=== PATIENT | female | born 1960 | race Caucasian/White ===

== ENCOUNTER 2024-02-20 07:24 | Day surgery (SDC) | payer BC ==
[~2024-02-20] VITALS: Ht 165.1 cm; Wt 65.8 kg
[2024-02-20] MEDS: CEFAZOLIN SOD 2 GM in D5W 50 ML IV ONE (08:00)
[2024-02-20] MEDS ORDERED: MIDAZOLAM HCL 2 MG/2 ML VIAL (VERSED) ONE (08:58)
[2024-02-20] MEDS ORDERED: ePHEDrine sulfate 50 MG/ML VIAL ONE (08:58)
[2024-02-20] MEDS ORDERED: LIDOCAINE HCL/PF 1% 10 ML AMPUL INJ ONE (08:58)
[2024-02-20] MEDS ORDERED: fentaNYL CITRATE/PF 100 MCG/2 ML AMP ONE (08:58)
[2024-02-20] MEDS ORDERED: PROPOFOL 200MG/ 20ML VIAL (DIPRIVAN) IV ONE (08:58)
[2024-02-20] MEDS ORDERED: LR 1,000 ML IV.SOLN IV ONE (08:58)
[2024-02-20] MEDS ORDERED: SEVOFLURANE 15 MIN GAS INH ONE (08:58)
[2024-02-20] MEDS ORDERED: NS IRRIG SOLN 1000 ML IR ONE (08:58)
[2024-02-20] MEDS ORDERED: SUCCINYLCHOLINE CHLORIDE 20 MG/ML(QUELICIN) ONE (08:58)
[2024-02-20] MEDS: LR 1,000 ML IV SCH (10:15)
[2024-02-20] MEDS ORDERED: NALOXONE HCL 0.4 MG/ML AMP (NARCAN) IVP PRN (10:15)
[2024-02-20] MEDS ORDERED: MEPERIDINE 50 MG/ML VIAL IVP PRN (10:15)
[2024-02-20] MEDS ORDERED: ONDANSETRON HCL 4 MG/2 ML VIAL IVP PRN ×2 (10:15→13:00)
[2024-02-20] MEDS ORDERED: MEPERIDINE HCL/PF 25 MG/ML DISP.SYRIN IVP PRN (10:15)
[2024-02-20] MEDS ORDERED: KETOROLAC TROMETHAMINE 30 MG VIAL IVP PRN (10:15)
[2024-02-20] MEDS: hydrALAZINE HCL 20 MG/ML VIAL ONE (12:42)
[2024-02-20] MEDS: hydrALAZINE HCL 20 MG/ML VIAL IVP PRN (12:42)
[2024-02-20] MEDS ORDERED: ONDANSETRON 4 MG ODT TAB PO PRN (13:00)
[2024-02-20] MEDS: KCL 20 mEq in D5/0.45NS 1000mL 1,000 ML IV SCH (13:00)
[2024-02-20] MEDS: HYDROmorphone 1 MG/ML INJ. CARTRIDGE IVP PRN (13:16)
[2024-02-20 14:30] VITALS: BP_SYST 145; PULSE 99; RESP 16; TEMP 97.9; O2SAT 97
[2024-02-20] MEDS: HYDROmorphone 1 MG/ML INJ. CARTRIDGE ONE (14:41)
[2024-02-20] MEDS: HYDROcodone/ACETAMIN 5-325 MG TAB (NORCO/ VICODIN) PO PRN (15:19)
[2024-02-20 16:08] VITALS: BP_SYST 145; PULSE 99; RESP 17; TEMP 97.9; O2SAT 97
[2024-02-20 20:00] VITALS: BP_SYST 133; PULSE 91; RESP 16; TEMP 98.1; O2SAT 98
[2024-02-20 22:00] LABS: ALBUMIN 3.6 g/dL (3.4-4.8); CALCIUM 8.7 mg/dL (8.4-11.0)
[2024-02-20] MEDS: CALCIUM 500 MG/TAB PO SCH (22:23)
[2024-02-21 00:20] VITALS: BP_SYST 128; PULSE 76; RESP 18; TEMP 98.8; O2SAT 98
[2024-02-21] MEDS: LEVOTHYROXINE SODIUM 0.112 MG TABLET PO SCH (06:44)
[2024-02-21] MEDS ORDERED: LEVOTHYROXINE SODIUM 0.15 MG TABLET PO SCH (07:00)
[2024-02-21 07:41] LABS: ALBUMIN 3.1 g/dL (3.4-4.8); CALCIUM 8.8 mg/dL (8.4-11.0)
[2024-02-21 08:00] VITALS: BP_SYST 142; PULSE 97; RESP 14; TEMP 98.1; O2SAT 95
[2024-02-21] MEDS: lisinopriL 5 MG TABLET PO SCH (10:20)
[2024-02-21 15:03] LABS: ALBUMIN 3.1 g/dL (3.4-4.8); CALCIUM 8.4 mg/dL (8.4-11.0)
[2024-02-21 16:57] VITALS: BP_SYST 145; PULSE 91; RESP 14; TEMP 97.7; O2SAT 96
== END 2024-02-21 17:55 | disposition home or self-care (01) ==
LOC: SDS 07:24 → SMU 07:26 → EDSTATUS 08:00 → SMU 16:04 → SDS 02-21 17:55
PROVIDERS: ATTEND Otolaryngology
DX: C73 Malignant neoplasm of thyroid gland (principal); I10 Essential (primary) hypertension; E78.5 Hyperlipidemia, unspecified; Z98.891 History of uterine scar from previous surgery; E07.89 Other specified disorders of thyroid; Z79.890 Hormone replacement therapy; Z79.899 Other long term (current) drug therapy; Z98.890 Other specified postprocedural states
CPT/HCPCS: 87081; 60240; 82040; 82310; 36415; 83970; 88307; J0690; J0360; J2003; J2250; J2704; J0330; J3010; J1171; J7060; J7120